=== PATIENT | male | born 1990 | race Caucasian/White ===

== ENCOUNTER 2021-03-20 17:40 | Emergency (ER) | payer SELFPAY ==
[~2021-03-20] VITALS: Ht 172.7 cm; Wt 77.1 kg
[2021-03-20 18:05] VITALS: BP 115/77
[2021-03-20] MEDS ORDERED: predniSONE 20 MG TABLET ONE (18:26)
[2021-03-20] MEDS ORDERED: predniSONE 10 MG TABLET PO ONE (18:30)
--- NOTE | 2021-03-20 18:30 | NUR ---
Patient a/ox4, breathing even and unlabored, no sob noted. Needs attended. SPO2 99% ON ROOM AIR.
[2021-03-20] MEDS ORDERED: ALBU8.5H8 INH (19:15)
[2021-03-20] MEDS ORDERED: EPIN0.3P3 IJ (19:15)
== END 2021-03-20 19:18 | disposition home or self-care (01) ==
LOC: ER 17:40
DX: T78.1XXA Other adverse food reactions, not elsewhere classified, initial encounter (principal); J45.909 Unspecified asthma, uncomplicated; Z88.6 Allergy status to analgesic agent; Z79.899 Other long term (current) drug therapy; X58.XXXA Exposure to other specified factors, initial encounter
CPT/HCPCS: 99283; J7512

== ENCOUNTER 2021-06-09 22:44 | Emergency (ER) | payer SELFPAY ==
[~2021-06-09] VITALS: Ht 172.7 cm; Wt 77.1 kg
[~2021-06-09 22:44] MED LIST: ALBU8.5H8 INH; EPIN0.3P3 IJ
--- NOTE | 2021-06-09 23:50 | NUR ---
PATIENT BIBSELF FOR C/O SOB AND UPPER BACK PAIN ON INSPIRATION S/P DIAGNOSED & TREATED FOR COVID PNA 3 WEEKS AGO. PATIENT IS A/OX 4, RR EVEN AND UNLABORED, NO SIGNS OF SOB NOTED. PATIENT CONNECTED TO [employer] AND POX.
[2021-06-09] MEDS: IPRATROPIUM NEB FS 0.5 MG/2.5 ML AMPUL.NEB NEB ONE (23:54)
[2021-06-09] MEDS: ALBUTEROL FS 2.5 MG/3 ML VIAL.NEB NEB ONE (23:54)
[2021-06-09] MEDS ORDERED: ALBUTEROL FS 2.5 MG/3 ML VIAL.NEB ONE (23:55)
[2021-06-09] MEDS ORDERED: IPRATROPIUM NEB FS 0.5 MG/2.5 ML AMPUL.NEB ONE (23:55)
[2021-06-09] MEDS ORDERED: predniSONE 20 MG TABLET ONE (23:59)
[2021-06-10] MEDS: predniSONE 20 MG TABLET PO ONE (00:01)
--- NOTE | 2021-06-10 00:10 | NUR ---
PATIENT RECEVING BREATHING TX
[2021-06-10] MEDS ORDERED: PRED20TA PO (02:31)
[2021-06-10 02:34] VITALS: BP 124/64
--- NOTE | 2021-06-10 02:43 | NUR ---
Patient discharged to home in stable condition. Written and verbal after care instructions given. Patient verbalizes understanding of instruction.
== END 2021-06-10 02:44 | disposition home or self-care (01) ==
LOC: ER 22:47
DX: J45.909 Unspecified asthma, uncomplicated (principal); Z88.6 Allergy status to analgesic agent; Z88.8 Allergy status to other drugs, medicaments and biological substances; Z79.899 Other long term (current) drug therapy
CPT/HCPCS: 71045; 94644; 99285; J7512

== ENCOUNTER 2021-07-01 09:23 | Emergency (ER) | payer MEDICAID ==
[~2021-07-01] VITALS: Ht 172.7 cm; Wt 77.1 kg
[~2021-07-01 09:23] MED LIST changes: +PRED20TA PO
[2021-07-01] MEDS ORDERED: IPRATROPIUM NEB FS 0.5 MG/2.5 ML AMPUL.NEB ONE (09:48)
[2021-07-01] MEDS ORDERED: ALBUTEROL FS 2.5 MG/0.5 ML VIAL.NEB ONE (09:48)
[2021-07-01] MEDS ORDERED: predniSONE 20 MG TABLET ONE (09:49)
--- NOTE | 2021-07-01 09:56 | NUR ---
31 years old male with history of asthma walking to er c/o sob x3 days, no improvement with inhaler, prednisone given as prescribed, RT at bedside for neb treatment will continue to monitor and provide comfort.
[2021-07-01] MEDS ORDERED: IPRATROPIUM NEB FS 0.5 MG/2.5 ML AMPUL.NEB NEB ONE (10:00)
[2021-07-01] MEDS ORDERED: predniSONE 20 MG TABLET PO ONE (10:00)
[2021-07-01] MEDS ORDERED: ALBUTEROL FS 2.5 MG/3 ML VIAL.NEB NEB ONE (10:00)
[2021-07-01] MEDS ORDERED: PRED50TA PO (10:26)
[2021-07-01] MEDS ORDERED: IPRA3AMP23 IH (10:26)
[2021-07-01 10:38] VITALS: BP 110/70
--- NOTE | 2021-07-01 10:39 | NUR ---
patient condition improved d/c home with instructions after care reviewed understood left er ambulatory with steady gait no sob, no cp.
== END 2021-07-01 10:40 | disposition home or self-care (01) ==
LOC: ER 09:26
DX: J45.909 Unspecified asthma, uncomplicated (principal); Z90.49 Acquired absence of other specified parts of digestive tract; Z88.6 Allergy status to analgesic agent; Z88.8 Allergy status to other drugs, medicaments and biological substances; Z79.899 Other long term (current) drug therapy
CPT/HCPCS: 71045; 94640; 99291; J7512